=== PATIENT | male | born 1950 | race African-American/Black ===

== ENCOUNTER 2020-01-27 08:13 | Day surgery (SDC) | payer MEDICARE, MEDICAID ==
[~2020-01-27] VITALS: Ht 188 cm; Wt 150.0 kg
[~2020-01-27 08:13] MED LIST: FLUO20CA36 PO; SODIUM CHLORIDE 0.9% 0 ML ONE; SODIUM CHLORIDE 0.9% 1,000 ML IV ONE; SODIUM CHLORIDE 0.9% 1,000 ML ONE; TOPI100T37 PO
[2020-01-27] MEDS ORDERED: LIDOCAINE/PF 2% 5 ML VIAL IM ONE (08:14)
[2020-01-27] MEDS ORDERED: PROPOFOL 1% 20 ML VIAL IVP ONE (08:14)
[2020-01-27] MEDS ORDERED: OXYGEN THERAPY IH SCH (20:00)
== END 2020-01-27 11:55 | disposition home or self-care (01) ==
LOC: SURGERY 08:13
PROVIDERS: ATTEND Specialist
DX: Z12.11 Encounter for screening for malignant neoplasm of colon (principal); K63.5 Polyp of colon; K64.1 Second degree hemorrhoids; D12.4 Benign neoplasm of descending colon; K57.30 Diverticulosis of large intestine without perforation or abscess without bleeding; F32.9 Major depressive disorder, single episode, unspecified; G43.909 Migraine, unspecified, not intractable, without status migrainosus; Z98.84 Bariatric surgery status; Z98.890 Other specified postprocedural states; Z72.89 Other problems related to lifestyle; Z79.899 Other long term (current) drug therapy
CPT/HCPCS: 45385; 45398; J7030; 88305; J2704; J3490

== ENCOUNTER 2025-07-07 05:15 | Observation (INO) | payer OTHER ==
[~2025-07-07] VITALS: Ht 185.4 cm; Wt 168.2 kg
[~2025-07-07 05:15] MED LIST changes: +ASPI-1444 PO; +ATOR20TA PO; -FLUO20CA36 PO; +GABA-1181 PO; +LANS-78 PO; +LOSA100T59 PO; +RINGERS SOLUTION,LACTATED 1,000 ML IV ONE; -SODIUM CHLORIDE 0.9% 0 ML ONE; -SODIUM CHLORIDE 0.9% 1,000 ML IV ONE; -SODIUM CHLORIDE 0.9% 1,000 ML ONE; -TOPI100T37 PO
[2025-07-07 06:06] LABS: PLATELET COUNT (AUTO) 241 K/uL (150-450); RED BLOOD CELL COUNT(AUTO) 5.01 MIL/uL (4.50-5.90); RED CELL DISTRIBUTION WIDTH 14.5 % (11.5-14.5); WHITE BLOOD COUNT (AUTO) 4.2 K/uL (4.5-11.0)
[2025-07-07] MEDS ORDERED: BUME1TAB50 PO (06:11)
[2025-07-07] MEDS ORDERED: FLUO40CA PO (06:11)
[2025-07-07] MEDS ORDERED: LOSA1TAB40 PO (06:11)
[2025-07-07] MEDS ORDERED: SPIR-37 PO (06:11)
[2025-07-07 06:16] LABS: CALCIUM, TOTAL 8.4 mg/dL (8.8-10.5); CREATININE 0.95 mg/dL (0.60-1.30); GLOMERULAR FILTR. RATE CALC > 60 mL/min (>60); GLUCOSE,RANDOM 104 mg/dL (70-110); SODIUM SERUM 141 mmol/L (136-145); UREA NITROGEN, BLOOD 10 mg/dL (7-18)
[2025-07-07] MEDS: ETHYL ALCOHOL 62% ANTISEPTIC NASAL SANITIZER 0.6 ML AMPUL NASAL ONE (06:31)
[2025-07-07] MEDS: RINGERS SOLUTION,LACTATED 1,000 ML IV ONE (06:32)
[2025-07-07] MEDS: CHLORHEXIDINE GLUCONATE 2% TOWELETTE [2'S/6'S] TP ONE (06:32)
[2025-07-07] MEDS ORDERED: BUPIVACAINE HCL/PF 0.25% 30 ML VIAL ONE (07:19)
[2025-07-07] MEDS ORDERED: BUPIVACAINE HCL/DEX-WATER/PF 0.75% 2 ML AMP ITH ONE (07:28)
[2025-07-07] MEDS ORDERED: ACETAMINOPHEN 325 MG TABLET PO PRN ×2 (09:45→11:15)
[2025-07-07] MEDS ORDERED: OxyCODONE HCL/ACETAMINOPHEN 5-325 MG TABLET PO PRN (09:45)
[2025-07-07 10:45] VITALS: BP 134/75; PULSE 90; RESP 20; TEMP 98; O2SAT 97
[2025-07-07] MEDS ORDERED: ONDANSETRON HCL 4 MG/2 ML VIAL IVP PRN (11:15)
[2025-07-07] MEDS ORDERED: MORPHINE SULFATE 4 MG/ML SYRINGE IVP PRN (11:15)
[2025-07-07] MEDS ORDERED: MAGNESIUM HYDROXIDE SUSPENSION 30 ML UDCUP PO PRN (11:15)
[2025-07-07] MEDS ORDERED: BISACODYL 10 MG RECTAL RECTAL SUPPOSITORY PR PRN (11:15)
[2025-07-07] MEDS: BUPIVACAINE LIPOSOME/PF 1.3%-13.3MG/ML SUSP 20 ML VIAL INJ ONE (11:50)
[2025-07-07] MEDS ORDERED: GLYCOPYRROLATE 0.2 MG/ML VIAL ONE (12:00)
[2025-07-07] MEDS ORDERED: ONDANSETRON HCL 4 MG/2 ML VIAL ONE (12:00)
[2025-07-07] MEDS ORDERED: PROPOFOL 1% ISO-OSM 1000 MG/100 ML BOTTLE ONE (12:00)
[2025-07-07] MEDS ORDERED: FentaNYL CITRATE PF 100 MCG/2 ML VIAL ONE (12:00)
[2025-07-07] MEDS ORDERED: LIDOCAINE/PF 2% 5 ML VIAL ONE (12:00)
[2025-07-07] MEDS ORDERED: MIDAZOLAM HCL 2 MG/2 ML VIAL ONE (12:00)
[2025-07-07] MEDS ORDERED: MIDAZOLAM HCL 2 MG/2 ML VIAL IVP ONE (14:44)
[2025-07-07] MEDS ORDERED: FentaNYL CITRATE PF 100 MCG/2 ML VIAL IM ONE (14:44)
[2025-07-07 15:43] VITALS: BP 141/6; PULSE 71; RESP 18; TEMP 98.2; O2SAT 96
[2025-07-07 19:52] VITALS: BP 152/77; PULSE 68; RESP 20; TEMP 98.1; O2SAT 95
[2025-07-07] MEDS: DOCUSATE SODIUM 100 MG CAPSULE PO SCH (20:30)
[2025-07-07] MEDS: OxyCODONE HCL/ACETAMINOPHEN 5-325 MG TABLET PO PRN (20:39)
[2025-07-07] MEDS: ZOLPIDEM TARTRATE 5 MG TABLET PO PRN (22:03)
[2025-07-07] MEDS: HEPARIN SODIUM,PORCINE 5,000 UNITS/ML VIAL SQ SCH (23:18)
[2025-07-07] MEDS: KETOROLAC TROMETHAMINE 30 MG/ML VIAL IVP PRN (23:24)
[2025-07-07 23:28] VITALS: PULSE 78; RESP 16; O2SAT 95
[2025-07-07 23:58] VITALS: BP 113/69; PULSE 64; RESP 18; TEMP 97.7; O2SAT 94
[2025-07-08 04:16] VITALS: BP 128/76; PULSE 67; RESP 18; TEMP 98.2; O2SAT 95
[2025-07-08 06:53] LABS: PLATELET COUNT (AUTO) 211 K/uL (150-450); RED BLOOD CELL COUNT(AUTO) 4.41 MIL/uL (4.50-5.90); RED CELL DISTRIBUTION WIDTH 14.6 % (11.5-14.5); WHITE BLOOD COUNT (AUTO) 4.8 K/uL (4.5-11.0)
[2025-07-08 07:08] LABS: CALCIUM, TOTAL 8.0 mg/dL (8.8-10.5); CREATININE 0.86 mg/dL (0.60-1.30); GLOMERULAR FILTR. RATE CALC > 60 mL/min (>60); GLUCOSE,RANDOM 96 mg/dL (70-110); SODIUM SERUM 141 mmol/L (136-145); UREA NITROGEN, BLOOD 12 mg/dL (7-18)
[2025-07-08 07:25] VITALS: BP 143/79; PULSE 69; RESP 18; TEMP 98.6; O2SAT 92
[2025-07-08] MEDS: LOSARTAN POTASSIUM 50 MG TABLET PO SCH (09:18)
[2025-07-08] MEDS: PANTOPRAZOLE SODIUM 40 MG DR TABLET PO SCH (09:18)
[2025-07-08] MEDS: ATORVASTATIN CALCIUM 20 MG TABLET PO SCH (09:19)
[2025-07-08] MEDS: BUMETANIDE 1 MG TABLET PO SCH (09:19)
[2025-07-08] MEDS: SPIRONOLACTONE 25 MG TABLET PO SCH (09:19)
[2025-07-08] MEDS: GABAPENTIN 300 MG CAPSULE PO SCH (09:19)
[2025-07-08 11:44] VITALS: BP 120/60; PULSE 63; RESP 20; TEMP 98.2; O2SAT 93
[2025-07-08] MEDS ORDERED: ASPI-1444 PO (13:54)
== END 2025-07-08 14:45 | disposition home or self-care (01) ==
LOC: SDS 05:15 → INTOOBSV 11:12 → 5S 11:12
PROVIDERS: ADMIT Internal Medicine; ATTEND Internal Medicine
DX: S82.142A Displaced bicondylar fracture of left tibia, initial encounter for closed fracture (principal); S83.242A Other tear of medial meniscus, current injury, left knee, initial encounter; S83.282A Other tear of lateral meniscus, current injury, left knee, initial encounter; S89.92XA Unspecified injury of left lower leg, initial encounter; M65.962 Unspecified synovitis and tenosynovitis, left lower leg; E66.01 Morbid (severe) obesity due to excess calories; M17.12 Unilateral primary osteoarthritis, left knee; E78.5 Hyperlipidemia, unspecified; I11.0 Hypertensive heart disease with heart failure; I50.9 Heart failure, unspecified; G47.33 Obstructive sleep apnea (adult) (pediatric); R00.1 Bradycardia, unspecified; Z79.82 Long term (current) use of aspirin; Z68.42 Body mass index [BMI] 45.0-49.9, adult; Z79.899 Other long term (current) drug therapy; V49.9XXA Car occupant (driver) (passenger) injured in unspecified traffic accident, initial encounter; Y93.89 Activity, other specified; Y92.89 Other specified places as the place of occurrence of the external cause; Y99.8 Other external cause status
CPT/HCPCS: 29880; 29876; 96374; 96372 ×2; 80048 ×2; 85025 ×2; 85610; 85730; 36415 ×2; 93005; 94660; 94760; 99219; 97162; 97110; Z7506; Z7508; Z7610 ×3; G0238; J3490 ×4; J0690; J3010; J1885; J2250; J2405; J2704; J1644 ×2; J7120; J0666